=== PATIENT | female | born 1990 | race Caucasian/White ===

== ENCOUNTER 2016-08-26 12:54 | Emergency (ER) | payer BC ==
[2016-08-26] MEDS ORDERED: Meclizine HCl 25 MG TAB ONE (13:21)
[2016-08-26] MEDS ORDERED: SODIUM CHLORIDE 0.9% 1,000 ML ONE (13:21)
[2016-08-26] MEDS ORDERED: ONDANSETRON 4 MG VIAL ONE (14:15)
[2016-08-26] MEDS ORDERED: DIPHENHYDRAMINE 50 MG/ML VIAL ONE (14:36)
[2016-08-26] MEDS ORDERED: KETOROLAC 30 MG/ML VIAL ONE (14:36)
[2016-08-26] MEDS ORDERED: DILAUDID 1 MG/ML AMP ONE (16:53)
== END 2016-08-26 18:20 | disposition home or self-care (01) ==
LOC: ER 12:54
DX: R42 Dizziness and giddiness (principal); R51 Headache; F17.210 Nicotine dependence, cigarettes, uncomplicated
CPT/HCPCS: 36415; 70450; 80053; 81003; 82553; 84439; 84443; 84484; 84703; 85025; 93005; 96361; 96374; 96375